=== PATIENT | female | born 1945 | race Caucasian/White ===

== ENCOUNTER → 2020-07-09 | Outpatient (CLI) | payer MEDICARE, OTHER ==
[2015-12-22 08:45] VITALS: BP 164/78
[~2020-07-09] MED LIST: BUPR300T3 PO; CALC500T54 PO; CRESTOR5 MG PO; CYAN500T17 PO; CYCL1DRO EACHEYE; DULO60CA6 PO; LEVO1CAP PO; MULT-505 PO; OLME40TA12 PO; TRAZ-120 PO
[2020-07-09 11:06] LABS: BASO # 0.1 x10^3/uL (0.0-0.2); BASO % 2 % (0-3); EOS # 0.1 x10^3/uL (0.0-0.7); EOS % 3 % (0-3); HEMATOCRIT 40.6 % (36.0-47.0); HEMOGLOBIN 13.2 g/dL (12.0-15.5); LYMPH # 1.7 x10^3/uL (1.0-4.8); LYMPH % 37 % (24-48); MEAN CORPUSCULAR HEMOGLOBIN 31 pg (25-35); MEAN CORPUSCULAR HGB CONC 33 g/dL (31-37); MEAN CORPUSCULAR VOLUME 96 fL (79-100); MONO # 0.5 x10^3/uL (0.0-1.1); MONO % 10 % (0-9); NEUT # 2.2 x10^3uL (1.8-7.7); NEUT % 48 % (31-73); PLATELET COUNT 282 x10^3/uL (140-400); RED BLOOD COUNT 4.26 x10^6/uL (3.50-5.40); RED CELL DISTRIBUTION WIDTH 14.5 % (11.5-14.5); WHITE BLOOD COUNT 4.7 x10^3/uL (4.0-11.0)
[2020-07-09 11:19] LABS: ALBUMIN 3.8 g/dL (3.4-5.0); CALCIUM 9.2 mg/dL (8.5-10.1); DIRECT BILIRUBIN 0.1 mg/dL (0.0-0.2); TOTAL BILIRUBIN 0.3 mg/dL (0.2-1.0); TOTAL PROTEIN 7.1 g/dL (6.4-8.2)
== END ==
LOC: LAB 09:19
DX: E66.01 Morbid (severe) obesity due to excess calories (principal); K90.9 Intestinal malabsorption, unspecified
CPT/HCPCS: 36415; 80076; 82306; 82310; 82607; 82746; 83540; 85025

== ENCOUNTER → 2021-03-09 | Outpatient (CLI) | payer MEDICARE, OTHER ==
[2015-12-22 08:45] VITALS: BP 164/78
[2021-03-09 11:59] LABS: BASO % 1 % (0-3); EOS # 0.1 x10^3/uL (0.0-0.7); EOS % 2 % (0-3); HEMATOCRIT 41.4 % (36.0-47.0); HEMOGLOBIN 13.6 g/dL (12.0-15.5); LYMPH # 1.3 x10^3/uL (1.0-4.8); LYMPH % 22 % (24-48); MEAN CORPUSCULAR HEMOGLOBIN 30 pg (25-35); MEAN CORPUSCULAR HGB CONC 33 g/dL (31-37); MEAN CORPUSCULAR VOLUME 91 fL (79-100); MONO # 0.6 x10^3/uL (0.0-1.1); MONO % 10 % (0-9); NEUT # 3.9 x10^3uL (1.8-7.7); NEUT % 66 % (31-73); PLATELET COUNT 231 x10^3/uL (140-400); RED BLOOD COUNT 4.54 x10^6/uL (3.50-5.40); RED CELL DISTRIBUTION WIDTH 15.1 % (11.5-14.5); WHITE BLOOD COUNT 5.9 x10^3/uL (4.0-11.0)
[2021-03-09 12:05] LABS: ALBUMIN 3.8 g/dL (3.4-5.0); ALBUMIN/GLOBULIN RATIO 1.5 (1.0-1.7); CALCIUM 8.8 mg/dL (8.5-10.1); CREATININE 0.9 mg/dL (0.6-1.0); GFR 61.2; POTASSIUM 3.7 mmol/L (3.5-5.1); TOTAL BILIRUBIN 0.4 mg/dL (0.2-1.0); TOTAL PROTEIN 6.4 g/dL (6.4-8.2)
== END ==
LOC: LAB 11:19
PROVIDERS: ATTEND Family Medicine
DX: R19.7 Diarrhea, unspecified (principal); A04.72 Enterocolitis due to Clostridium difficile, not specified as recurrent
CPT/HCPCS: 36415; 80053; 82150; 83690; 85025; 87045; 87177; 87209; 87329; 87493; 87505

== ENCOUNTER 2021-03-11 18:44 | Emergency (ER) | payer MEDICARE, OTHER ==
[~2021-03-11] VITALS: Ht 152.4 cm; Wt 61.4 kg
--- NOTE | 2021-03-11 19:19 | PHYS DOC ---
General Adult EDM: Chief Complaint: ABDOMINAL PAIN HPI: HPI: Patient is a 75-year-old female who presents to the ER today for diarrhea, decreased appetite, nausea, right lower quadrant pain, right scapular pain that started 3-1/2 weeks ago. Patient was seen at [facility] on March [address] scan of her abdomen that showed a distended gallbladder with cholelithiasis with no other acute findings. Patient reports that she was seen at her primary care provider's office yesterday and had blood work done. She reports receiving a phone call from her primary care provider that told her to go to the ER to be evaluated for pancreatitis based off of her lab findings. Patient reports that she is able to eat small amounts of food and has not vomited. She denies fevers, chills, chest pain, shortness of breath, urinary complaints, blood in stools. Positive history of a gastric sleeve 6 years ago. (RON JAIMES APRN) Review of Systems: Review of Systems: 14 body systems of the review of systems have been reviewed. See HPI for pertinent positive and negative responses, otherwise all other systems are negative, nonpertinent or noncontributory (RON JAIMES APRN) Current Medications: Current Meds: Current Medications Medications (Trade) Dose Ordered Sig/Ministerio Start Time Stop Time Status Last Admin Dose Admin Fentanyl Citrate (Fentanyl 2ml Vial) 50 mcg 1X ONCE 03/11/21 19:15 03/11/21 19:16 UNV Ondansetron HCl (Zofran) 4 mg 1X ONCE 03/11/21 19:15 03/11/21 19:16 UNV Sodium Chloride 1,000 ml @ 1,000 mls/hr 1X ONCE 03/11/21 19:15 03/11/21 20:14 UNV (RON JAIMES APRN) Allergies: Allergies: Allergies Coded Allergies Type Severity Reaction Last Updated Verified adhesive tape Allergy Intermediate Rash 11/25/15 Yes codeine Allergy Unknown 11/11/15 Yes (RON JAIMES APRN) Physical Exam: PE: Constitutional: Well developed, well nourished, no acute distress, non-toxic appearance. [] HENT: Normocephalic, atraumatic, bilateral external ears normal, oropharynx moist, nose normal. [] EYES: conjunctivae normal, no discolorations of eyes Neck: Normal range of motion, no stridor. [] Cardiovascular:Heart rate regular rhythm, no murmur [] Lungs & Thorax: Bilateral breath sounds clear to auscultation [] Abdomen: Bowel sounds normal, soft, no masses, no pulsatile masses. Tenderness with palpation of right lower quadrant. Negative for any rebound tenderness, negative Rovsings sign.[] Skin: Warm, dry, no erythema, no rash. [] Back: No tenderness, positive right CVA tenderness. [] Extremities: No tenderness, no cyanosis, no clubbing, ROM intact, no edema. [] Neurologic: Alert and oriented X 3, normal motor function, normal sensory function, no focal deficits noted. [] Psychologic: Affect normal, judgement normal, mood normal. [] (RON JAIMES PASSENGER RELATIONS REPRESENTATIVE) Current Patient Data: Labs: Laboratory Tests Test 03/11/21 18:59 03/11/21 19:26 Urine Collection Type Unknown Urine Color Yellow Urine Clarity Hazy Urine pH 5.5 Urine Specific [place] 1.010 Urine Protein Neg Urine Glucose (UA) Neg mg/dL Urine Ketones (Stick) 40 mg/dL Urine Blood Trace Urine Nitrite Neg Urine Bilirubin Neg Urine Urobilinogen Dipstick 0.2 mg/dL Urine Leukocyte Esterase Mod Urine RBC /HPF Urine WBC /HPF Urine Squamous Epithelial Cells /LPF Urine Bacteria /HPF Sodium Level 139 mmol/L Potassium Level 4.5 mmol/L Chloride Level 105 mmol/L Carbon Dioxide Level 26 mmol/L Anion Gap 8 Blood Urea Nitrogen 10 mg/dL Creatinine 0.9 mg/dL Estimated GFR (Cockcroft-Gault) 61.2 BUN/Creatinine Ratio 11 Glucose Level 87 mg/dL Calcium Level 9.3 mg/dL Total Bilirubin 0.5 mg/dL Aspartate Amino Transf (AST/SGOT) 37 U/L Alanine Aminotransferase (ALT/SGPT) 31 U/L Alkaline Phosphatase 57 U/L Total Protein 6.5 g/dL Albumin 3.7 g/dL Albumin/Globulin Ratio 1.3 Lipase 561 U/L White Blood Count 5.2 x10^3/uL Red Blood Count 4.41 x10^6/uL Hemoglobin 13.2 g/dL Hematocrit 40.2 % Mean Corpuscular Volume 91 fL Mean Corpuscular Hemoglobin 30 pg Mean Corpuscular Hemoglobin Concent 33 g/dL Red Cell Distribution Width 15.5 % Platelet Count 235 x10^3/uL Neutrophils (%) (Auto) 47 % Lymphocytes (%) (Auto) 36 % Monocytes (%) (Auto) 12 % Eosinophils (%) (Auto) 4 % Basophils (%) (Auto) 1 % Neutrophils # (Auto) 2.4 x10^3uL Lymphocytes # (Auto) 1.8 x10^3/uL Monocytes # (Auto) 0.6 x10^3/uL Eosinophils # (Auto) 0.2 x10^3/uL Basophils # (Auto) 0.0 x10^3/uL Current Medications Medications (Trade) Dose Ordered Sig/Ministerio Route PRN Reason Start Time Stop Time Status Last Admin Dose Admin Ondansetron HCl (Zofran) 4 mg 1X ONCE IVP 03/11/21 19:15 03/11/21 19:16 DC 03/11/21 19:40 Fentanyl Citrate (Fentanyl 2ml Vial) 50 mcg 1X ONCE IVP 03/11/21 19:15 03/11/21 19:16 DC 03/11/21 19:39 Sodium Chloride 1,000 ml @ 1,000 mls/hr 1X ONCE IV 03/11/21 19:15 03/11/21 20:14 DC 03/11/21 19:38 Iohexol (Omnipaque 300 Mg/ml) 75 ml 1X ONCE IV 03/11/21 19:30 03/11/21 19:31 DC 03/11/21 20:01 Info (Do NOT chart on this entry -- for MONITORING) 1 each PRN DAILY PRN MC SEE COMMENTS 03/11/21 19:30 03/13/21 19:29 Vital Signs: Vital Signs Date Time Temp Pulse Resp B/P (MAP) Pulse Ox O2 Delivery O2 Flow Rate FiO2 03/11/21 18:59 98.2 75 18 132/99 (110) 99 Room Air (RON JAIMES APRN) EKG: EKG: EKG performed at 1930 showed sinus rhythm negative for STEMI read by (RON JAIMES APRN) Radiology/Procedures: Radiology/Procedures: PROCEDURE: CT ABD PELV W/ IV CONTRST ONLY Exam: CT of abdomen and pelvis with contrast INDICATION: Abdominal pain TECHNIQUE: Sequential axial images through the abdomen and pelvis obtained following the administration of 74 mL of Isovue-370 IV contrast. Sagittal and coronal reformatted images were reconstructed from the axial data and reviewed. Exposure: One or more of the following in the visualized dose reduction techniques were utilized for this examination: 1. Automated exposure control 2. Adjustment of the MA and/or KV according to patient size 3. Use of iterative of reconstructive technique Comparisons: None FINDINGS: Heart size is normal. No pericardial visualized lung bases are clear. No pleural effusion. Liver, spleen, pancreas and adrenals are unremarkable. Gallbladder is partially distended with gallstones. No perinephric inflammation or hydronephrosis. No renal or ureteral calculi are identified. Bladder is decompressed not well evaluated. Uterus is absent. No abnormal adnexal mass. Large and small bowel are unremarkable. Postoperative changes at the stomach are noted. No free intra-abdominal air or fluid. No obstruction. Abdominal aorta has a normal course and caliber. Abdominal vasculature is patent. No enlarged intra-abdominal lymph nodes are identified. No suspicious osseous lesions or acute fractures. IMPRESSION: 1. Postoperative changes at the stomach. No acute process identified within the abdomen or pelvis. 2. Cholelithiasis Electronically signed by: Skyla Dhillon MD (03/11/2021 8:29 PM) [facility] DICTATED AND SIGNED BY: SKYLA DHILLON MD DATE: 03/11/212023 CC: VIKTOR VICTORIA; RON JAIMES APRN ~MTH0 0 (RON JAIMES APRN) Radiology/Procedures: EXAM: ULTRASOUND ABDOMEN LIMITED CLINICAL HISTORY: cholelithasis on ct scan. ruq COMPARISON: CT 03/11/2021 TECHNIQUE: Limited ultrasound examination of the right upper quadrant of the abdomen was performed. FINDINGS: Pancreas is obscured by intestinal gas. Liver: 11.3 cm in length. The hepatic margin is smooth and the hepatic echogenicity is normal. There are no focal liver lesions. Flow seen within the portal veins. Biliary: Cholelithiasis. No wall thickening or pericholecystic fluid. There is no pain with direct transducer pressure over the gallbladder. Common bile duct measures 0.3 cm. Right Kidney: 9.0 cm in bipolar length. Normal renal cortical echotexture and thickness. No focal renal lesion, shadowing renal calculus or hydronephrosis. Visualized portions of the abdominal aorta and inferior vena cava are unremarkable. There is no free fluid in the subhepatic space. IMPRESSION: Cholelithiasis. No evidence of acute cholecystitis. Normal caliber common bile duct. Electronically signed by: Dionicio Bourgeois MD (03/12/2021 12:51 AM) [facility] FINDINGS: Heart size is normal. No pericardial visualized lung bases are clear. No pleural effusion. Liver, spleen, pancreas and adrenals are unremarkable. Gallbladder is partially distended with gallstones. No perinephric inflammation or hydronephrosis. No renal or ureteral calculi are identified. Bladder is decompressed not well evaluated. Uterus is absent. No abnormal adnexal mass. Large and small bowel are unremarkable. Postoperative changes at the stomach are noted. No free intra-abdominal air or fluid. No obstruction. Abdominal aorta has a normal course and caliber. Abdominal vasculature is patent. No enlarged intra-abdominal lymph nodes are identified. No suspicious osseous lesions or acute fractures. IMPRESSION: 1. Postoperative changes at the stomach. No acute process identified within the abdomen or pelvis. 2. Cholelithiasis (TASHIA DINERO MD) Heart Score: C/O Chest Pain: No Risk Factors: Risk Factors: DM, Current or recent (<one month) smoker, HTN, HLP, family history of CAD, obesity. Risk Scores: Score 0 - 3: 2.5% MACE over next 6 weeks - Discharge Home Score 4 - 6: 20.3% MACE over next 6 weeks - Admit for Clinical Observation Score 7 - 10: 72.7% MACE over next 6 weeks - Early Invasive Strategies (RNO JAIMES APRN) C/O Chest Pain: No (TASHIA DINERO MD) Course & Med Decision Making: Course & Med Decision Making Pertinent Labs and Imaging studies reviewed. (See chart for details) Patient presents to the ER today for a 3-1/2-week long history of diarrhea, decreased appetite, nausea, abdominal pain. Patient's work-up included blood work UA, and CT scan of her abdomen. Patient was given a liter fluids, nausea, and pain medication. Patient had an elevated lipase of 561. Her UA had moderate leukocytes and trace amount of blood. Her CT scan shows cholelithiasis. I spoke with patient and she is not in any pain currently and is not having any nausea, she was updated on plan of care. I spoke with the patient regarding admission to the hospital for cholelithiasis and she is agreeable at this time. Ultrasound ordered of right upper quadrant. Patient's case was discussed with my supervising physician. Patient is now under the care of Dr. Dinero. (RON JAIMES APRN) Course & Med Decision Making Patient care handed off to me pending ultrasound. Patient alert and oriented no acute distress. Pain and nausea controlled. Imaging notable for cholelithiasis with no cholecystitis. Mild elevation in lipase just slightly above normal. Discussed all findings with patient and recommended a light diet over the next few days discussing cholelithiasis. Advised on pain and nausea management at home. Advised to call primary care physician first thing in the morning to update on ED visit, diagnosis and need for outpatient surgical consultation to discuss cholecystectomy. Gave strict return precautions to the ED. Patient grateful, verbalized understanding and agreed with plan of discharge. (TASHIA DINERO MD) Dragon Disclaimer: Dragon Disclaimer: This electronic medical record was generated, in whole or in part, using a voice recognition dictation system. (RON JAIMES APRN) Departure Departure: Impression: Primary Impression: Cholelithiasis Additional Impression: Biliary colic Referrals: VIKTOR VICTORIA (PCP) Patient Instructions: Cholelithiasis, Diet - Following Bariatric Surgery, Full Liquid Diet Additional Instructions: Thank you for coming into the emergency department tonight and allowing us to take care of you. Please read all of the attached information very carefully to go back over what we discussed. Over the next couple of days please eat a light diet, with lots of fluids and clears including Gatorade and Pedialyte's, chicken soup and dry saltine crackers and try to maintain this as eating foods that are spicy and fatty and eating large amounts of foods canned because a biliary colic episode. Please call your primary care physician first thing in the morning to update on ED visit, set up a follow-up visit and discuss need for outpatient surgical consultation for removal of your gallbladder, called a cholecystectomy. Please come back to emergency department with new or concerning symptoms as discussed. RON JAIMES APRN Mar 11, 2021 19:19 TASHIA DINERO MD Mar 12, 2021 01:14
[2021-03-11] MEDS ORDERED: CONTRAST GIVEN. MC PRN (19:30)
[2021-03-11] MEDS: IV NORMAL SALINE 1,000ML 1,000 ML IV ONE (19:38)
[2021-03-11] MEDS: ONDANSETRON PF 4 MG/2 ML VIAL. IVP ONE (19:40)
[2021-03-11 19:45] LABS: BILIRUBIN,URINE NEG (NEG); CLARITY,URINE HAZY; COLOR,URINE YELLOW; GLUCOSE,URINE NEG (NEG); UROBILINOGEN,URINE 0.2 mg/dL (0.2 mg/dL)
[2021-03-11 19:46] LABS: BASO % 1 % (0-3); EOS # 0.2 x10^3/uL (0.0-0.7); EOS % 4 % (0-3); HEMATOCRIT 40.2 % (36.0-47.0); HEMOGLOBIN 13.2 g/dL (12.0-15.5); LYMPH # 1.8 x10^3/uL (1.0-4.8); LYMPH % 36 % (24-48); MEAN CORPUSCULAR HEMOGLOBIN 30 pg (25-35); MEAN CORPUSCULAR HGB CONC 33 g/dL (31-37); MEAN CORPUSCULAR VOLUME 91 fL (79-100); MONO # 0.6 x10^3/uL (0.0-1.1); MONO % 12 % (0-9); NEUT # 2.4 x10^3uL (1.8-7.7); NEUT % 47 % (31-73); PLATELET COUNT 235 x10^3/uL (140-400); RED BLOOD COUNT 4.41 x10^6/uL (3.50-5.40); RED CELL DISTRIBUTION WIDTH 15.5 % (11.5-14.5); WHITE BLOOD COUNT 5.2 x10^3/uL (4.0-11.0)
[2021-03-11 19:46] LABS: BACTERIA,URINE QNS /HPF (0-FEW); NITRITE,URINE NEG (NEG); RBC,URINE QNS /HPF (0-2); SQUAMOUS EPITHELIAL CELL,UR QNS /LPF; WBC,URINE QNS /HPF (0-4)
[2021-03-11 19:56] LABS: CALCIUM 9.3 mg/dL (8.5-10.1); CREATININE 0.9 mg/dL (0.6-1.0); GFR 61.2; POTASSIUM 4.5 mmol/L (3.5-5.1)
[2021-03-11 20:01] LABS: ALBUMIN 3.7 g/dL (3.4-5.0); ALBUMIN/GLOBULIN RATIO 1.3 (1.0-1.7); TOTAL BILIRUBIN 0.5 mg/dL (0.2-1.0); TOTAL PROTEIN 6.5 g/dL (6.4-8.2)
[2021-03-11] MEDS: IOHEXOL 300 MG/ML 75 ML VIAL. IV ONE (20:01)
--- NOTE | 2021-03-11 20:24 | EKG ---
[address] [address] Test Date: 2021-03-11 Test Time: 19:30:47 Pat Name: RHIANNON DAVALOS Department: Room: Gender: F School Administrator: : 1945 Requested By: RON JAIMES Order Number: [id number] Reading MD: Measurements Intervals [place] Rate: 63 P: 24 WA: 164 QRS: -8 QRSD: 84 T: 11 QT: 374 QTc: 386 Interpretive Statements SINUS RHYTHM LEFTWARD AXIS OTHERWISE NORMAL ECG RI6.02 No previous ECG available for comparison
--- NOTE | 2021-03-11 20:31 | RAD ---
Exam: CT of abdomen and pelvis with contrast INDICATION: Abdominal pain TECHNIQUE: Sequential axial images through the abdomen and pelvis obtained following the administrati on of 74 mL of Isovue-370 IV contrast. Sagittal and coronal reformatted images were reconstructed fro m the axial data and reviewed. Exposure: One or more of the following in the visualized dose reduction techniques were utilized for this examination: 1. Automated exposure control 2. Adjustment of the MA and/or KV according to patient size 3. Use of iterative of reconstructive technique Comparisons: None FINDINGS: Heart size is normal. No pericardial visualized lung bases are clear. No pleural effusion. Liver, spleen, pancreas and adrenals are unremarkable. Gallbladder is partially distended with gallst ones. No perinephric inflammation or hydronephrosis. No renal or ureteral calculi are identified. Bladder is decompressed not well evaluated. Uterus is absent. No abnormal adnexal mass. Large and small bowel are unremarkable. Postoperative changes at the stomach are noted. No free intra -abdominal air or fluid. No obstruction. Abdominal aorta has a normal course and caliber. Abdominal vasculature is patent. No enlarged intra-abdominal lymph nodes are identified. No suspicious osseous lesions or acute fractures. IMPRESSION: 1. Postoperative changes at the stomach. No acute process identified within the abdomen or pelvis. 2. Cholelithiasis Electronically signed by: Skyla Samuels MD (03/11/2021 8:29 PM) [facility]
--- NOTE | 2021-03-12 00:54 | RAD ---
EXAM: ULTRASOUND ABDOMEN LIMITED CLINICAL HISTORY: cholelithasis on ct scan. ruq COMPARISON: CT 03/11/2021 TECHNIQUE: Limited ultrasound examination of the right upper quadrant of the abdomen was performed. FINDINGS: Pancreas is obscured by intestinal gas. Liver: 11.3 cm in length. The hepatic margin is smooth and the hepatic echogenicity is normal. The re are no focal liver lesions. Flow seen within the portal veins. Biliary: Cholelithiasis. No wall thickening or pericholecystic fluid. There is no pain with direct transducer pressure over the gallbladder. Common bile duct measures 0.3 cm. Right Kidney: 9.0 cm in bipolar length. Normal renal cortical echotexture and thickness. No focal rei al lesion, shadowing renal calculus or hydronephrosis. Visualized portions of the abdominal aorta and inferior vena cava are unremarkable. There is no free fluid in the subhepatic space. IMPRESSION: Cholelithiasis. No evidence of acute cholecystitis. Normal caliber common bile duct. Electronically signed by: Dionicio Bourgeois MD (03/12/2021 12:51 AM) [facility]
[2021-03-12 01:25] VITALS: BP 137/66
[2021-03-12] MEDS: HYDROcodone/APAP 5/325MG 1 TAB TABLET PO ONE (01:25)
== END 2021-03-12 01:35 | disposition home or self-care (01) ==
LOC: ER 18:44
DX: K80.20 Calculus of gallbladder without cholecystitis without obstruction (principal); K80.50 Calculus of bile duct without cholangitis or cholecystitis without obstruction; R19.7 Diarrhea, unspecified; Z90.49 Acquired absence of other specified parts of digestive tract; Z88.5 Allergy status to narcotic agent
CPT/HCPCS: 36415; 74177; 76705; 80053; 81001; 83690; 85025; 87086; 93005; 96361; 96374; 96375; 99285; J2405; J3010; J7030; Q9967

== ENCOUNTER 2021-04-30 22:04 | Emergency (ER) | payer MEDICARE, OTHER ==
[~2021-04-30] VITALS: Ht 152.4 cm; Wt 60.7 kg
--- NOTE | 2021-04-30 22:25 | PHYS DOC ---
Past History Past Surgical History: Hysterectomy, Knee Replacement, Other Additional Past Surgical Histo: Bariatric surgery - sleeve Alcohol Use: Occasionally Adult General HPI HPI Patient is a 75-year-old female with a history of bilateral knee replacements wh o presents to the emergency department with family for chief complaint of fall. States that just before coming to the emergency department she slipped and fell on her umbrella that she was putting away. States she did hit the left side of her head and left knee. States she has a headache, 5 out of 10, whole head, dull and achy in nature. Is also complaining of left knee pain, 4 out of 10, dull and achy in nature. Denies any changes in vision, loss of consciousness, neck pain, chest pain, shortness of breath, abdominal pain, nausea, vomiting. Denies any trouble sitting, standing or walking. Denies any numbness/weakness/tingling. Denies any blood thinner use. Review of Systems Review of Systems Review of systems otherwise unremarkable except noted in HPI Allergies Allergies Allergies Coded Allergies Type Severity Reaction Last Updated Verified adhesive tape Allergy Intermediate Rash 11/25/15 Yes codeine Allergy Unknown 11/11/15 Yes Physical Exam Physical Exam Constitutional: Well developed, well nourished, no acute distress, non-toxic appearance. [] HENT: Normocephalic, atraumatic, bilateral external ears normal, oropharynx moist, no oral exudates, nose normal. [] Eyes: PERRLA, EOMI, conjunctiva normal, no discharge. [] Neck: Normal range of motion, no tenderness, supple, no stridor. [] Cardiovascular:Heart rate regular rhythm, no murmur [] Lungs & Thorax: Bilateral breath sounds clear to auscultation [] Abdomen: soft, no tenderness, no masses, no pulsatile masses. [] Skin: Warm, dry, no erythema, no rash. [] Back: No tenderness, Extremities: Mild left knee tenderness with no obvious abrasions, mild bruising, no deformities. Range of motion normal. Neurovascular exam intact. Neurologic: Alert and oriented X 3, able to sit, stand and walk without issue, no focal deficits noted. [] Psychologic: Affect normal, judgement normal, mood normal. [] EKG EKG [] Radiology/Procedures Radiology/Procedures [] CT head without contrast. CT cervical spine without contrast. PQRS statement: CT scans at this facility use dose reduction including either automated exposure control, iterative reconstructions, and /or weight based radiation dosing via mA and kV modification when appropriate to reduce radiation dose to as low as reasonably achievable. HISTORY: Fall injury. CT head findings: No intracranial hemorrhage, mass, hydrocephalus, extra-axial fluid collections or infarction. 1 cm in thickness right frontal scalp hematoma. Skull base, calvarium, mastoids and orbits are intact. IMPRESSION: No acute intracranial CT abnormality. Right frontal scalp hematoma. No skull fracture. CT cervical spine findings: Craniocervical junction intact. Cervical vertebral body height and alignment intact. No fracture of the cervical spine. 3 mm left apical nodule image 71. There is a small air-filled right posterolateral tracheal diverticulum at the thoracic inlet. Cervical disc height loss and disc bulges and disc osteophytes and uncovertebral spurring with spinal canal and neural foraminal stenoses at several levels. IMPRESSION: 1. No acute osseous injury of the cervical spine. 2. Cervical disc disease. 3. 3 mm right apical upper lobe pulmonary nodule. Per Fleischner guidelines if the patient has risk factors for malignancy optional CT follow-up in 12 could be considered, otherwise no follow-up is necessary. Electronically signed by: Vicente Corrales MD (04/30/2021 11:41 PM) [facility] Heart Score C/O Chest Pain: No Risk Factors: Risk Factors: DM, Current or recent (<one month) smoker, HTN, HLP, family history of CAD, obesity. Risk Scores: Risk Factors: DM, Current or recent (<one month) smoker, HTN, HLP, family history of CAD, obesity. Course & Med Decision Making Course & Med Decision Making Patient is a 75-year-old female who presents after slipping on her umbrella just before coming into the emergency department Vital signs notable for hypertension initially which improved during stay. Physical exam noted above. Patient given Tylenol and ice pack. Imaging with no acute osseous abnormalities. Discussed all findings with patient and family. Gave recommendations on symptom management at home. Advised to follow-up with primary care physician on Monday. Gave strict return precautions to the ED. Patient grateful, verbalized und erstanding and agreed with plan of discharge. [] Dragon Disclaimer Dragon Disclaimer This electronic medical record was generated, in whole or in part, using a voice recognition dictation system. Departure Departure: Impression: Primary Impression: Fall Additional Impressions: Head contusion Knee pain Disposition: HOME / SELF CARE / HOMELESS Condition: GOOD Referrals: VIKTOR VICTORIA (PCP) Patient Instructions: Fall Prevention and Home Safety, RICE - Routine Care for Injuries Additional Instructions: Thank you for coming into the emergency department tonight and allowing us to take care of you. Please read all the attached information above very carefully to go back over things we discussed. You can use Tylenol, and ibuprofen as needed and as tolerated as long as you are not allergic or have a contraindication of those as discussed. You can also use ice. Please follow-up with your primary care physician as soon as you can to update on ED visit. Please come back to the ED with new or concerning symptoms as discussed. Problem Qualifiers TASHIA DINERO MD Apr 30, 2021 22:25
[2021-04-30 22:27] VITALS: BP 151/101
--- NOTE | 2021-04-30 23:24 | RAD ---
Exam: Left knee 3 views INDICATION: Fall, knee replacement TECHNIQUE: Frontal, lateral oblique views left knee Comparisons: None FINDINGS: Left knee arthroplasty changes are noted. Bone mineralization is normal. No acute or healed fractures . Soft tissues are unremarkable. Joint spaces are well-maintained. IMPRESSION: Left knee arthroplasty changes without acute osseous abnormality identified. Electronically signed by: Skyla Samuels MD (04/30/2021 11:22 PM) [facility]
[2021-04-30] MEDS ORDERED: ACETAMINOPHEN 500 MG TABLET PO ONE (23:30)
--- NOTE | 2021-04-30 23:43 | RAD ---
CT head without contrast. CT cervical spine without contrast. PQRS statement: CT scans at this facility use dose reduction including either automated exposure cont rol, iterative reconstructions, and /or weight based radiation dosing via mA and kV modification when appropriate to reduce radiation dose to as low as reasonably achievable. HISTORY: Fall injury. CT head findings: No intracranial hemorrhage, mass, hydrocephalus, extra-axial fluid collections or i nfarction. 1 cm in thickness right frontal scalp hematoma. Skull base, calvarium, mastoids and orbits are intact. IMPRESSION: No acute intracranial CT abnormality. Right frontal scalp hematoma. No skull fracture. CT cervical spine findings: Craniocervical junction intact. Cervical vertebral body height and alignm ent intact. No fracture of the cervical spine. 3 mm left apical nodule image 71. There is a small air -filled right posterolateral tracheal diverticulum at the thoracic inlet. Cervical disc height loss a nd disc bulges and disc osteophytes and uncovertebral spurring with spinal canal and neural foraminal stenoses at several levels. IMPRESSION: 1. No acute osseous injury of the cervical spine. 2. Cervical disc disease. 3. 3 mm right apical upper lobe pulmonary nodule. Per Fleischner guidelines if the patient has risk f actors for malignancy optional CT follow-up in 12 could be considered, otherwise no follow-up is nece ssary. Electronically signed by: Vicente Corrales MD (04/30/2021 11:41 PM) [facility]
== END 2021-04-30 23:52 | disposition home or self-care (01) ==
LOC: ER 22:04
DX: S00.03XA Contusion of scalp, initial encounter (principal); S80.02XA Contusion of left knee, initial encounter; Z98.84 Bariatric surgery status; Z88.5 Allergy status to narcotic agent; Z88.8 Allergy status to other drugs, medicaments and biological substances; W01.0XXA Fall on same level from slipping, tripping and stumbling without subsequent striking against object, initial encounter; Y93.89 Activity, other specified; Y92.89 Other specified places as the place of occurrence of the external cause; Y99.8 Other external cause status
CPT/HCPCS: 70450; 72125; 73562; 99285